=== PATIENT | male | born 1965 | race African-American/Black ===

== ENCOUNTER 2019-07-24 18:14 | Emergency (ER) | payer MEDICAID, OTHER ==
[~2019-07-24] VITALS: Ht 185.4 cm; Wt 127.0 kg
[2019-07-24 19:00] VITALS: BP 157/100
[2019-07-24] MEDS ORDERED: ALBUTEROL SULF 2.5 MG/0.5ML(0.5%) NEB SOLN NEB ONE (19:30)
[2019-07-24] MEDS ORDERED: IPRATROPIUM BROM 0.5 MG/2.5ML INH SOL NEB ONE (19:30)
== END 2019-07-24 20:42 | disposition home or self-care (01) ==
LOC: ER 18:28
DX: J45.901 Unspecified asthma with (acute) exacerbation (principal); Z76.0 Encounter for issue of repeat prescription
CPT/HCPCS: 94640; 99283; J7611; J7644